=== PATIENT | male | born 1960 | race Hispanic/Latino ===

== ENCOUNTER 2025-03-22 00:16 | Emergency (ER) | payer OTHER, SELFPAY ==
[2025-03-22 00:26] VITALS: BP 203/134
[2025-03-22 01:00] VITALS: BP 150/86
--- NOTE | 2025-03-22 01:01 | ED.GENMED ---
History of Present Illness
General
Chief Complaint: Abdominal Pain
Source: patient
Exam Limitations: none
Time Seen by Provider: 03/22/25 00:40
History of Present Illness
History of Present Illness:
Patient to ED with complaint of urinary retention. States he drank some beer this afternoon and has had difficulty since. Approx 1 yea ago he had a similar event. He was seen by his PCP and placed on flomax. He was told that his prostate was
enlarged. He has not had any futher issues until today. Has not seen PCP since that visit 1 year ago. Brought self to ED for eval,
Past History
Past History
ED Past Medical History: None
Review of Systems
Review of Systems
Allergies reviewed?: Yes
All Other Systems: ROS reviewed and negative except as documented in HPI and ROS
Constitutional: Reports no symptoms
EENT: Reports no symptoms
Respiratory: Reports no symptoms
Cardiac: Reports no symptoms
ABD/GI: Reports no symptoms
: Reports difficulty voiding
Musculoskeletal: Reports no symptoms
Skin: Reports no symptoms
Neurological: Reports no symptoms
Psychiatric: Reports no symptoms
Phy Exam
General Physical Exam
General Presentation: moderate distress
General age: appears stated age
General Skin: warm
General Habitus: normal
General Mental: alert
Cardiovascular Exam
Cardiovascular Exam: regular rate/rhythm
Gastrointestinal Exam
Gastrointestinal Exam: non tender and soft
Genitourinary Exam Male
Exam Male: circumcised, no discharge, normal external genitalia, normal testicular exam, no evidence of trauma and other (Urinary retention. Silva placed by RN bedside. Drained 700cc clear urine. UA sent)
Musculoskeletal Exam
Musculoskeletal Exam: full ROM and neuro vasc intact
Skin Exam
Skin Exam: normal color, warm/dry and no rash
Psychiatric Exam
Psychiatric Exam: normal mood/affect
Course
Orders/Labs/Results
Orders:
Orders
10/05/25 00:56
Urinalysis Reflex To Culture Urgent
Date Specimen was Collected: 03/22/25
Time Specimen was Collected: 00:54
Urine Microscopic Reflex Cult Urgent
03/22/25 00:58
Silva [Silva Placement- Treatment] ONCE
Reason for insertion: Acute Retention
Abnormal Lab Results
03/22/25
00:56
Ur Occult Blood Reflex 4+ A
(Negative)
Urine RBC 3-6 A /HPF
(0-2)
Vital Signs
Initial and Last Documented VS:
Initial Vital Signs
Temp Pulse Resp BP Pulse Ox
98.5 F 120 20 203/134 99
03/22/25 00:26 03/22/25 00:26 03/22/25 00:26 03/22/25 00:26 03/22/25 00:26
Last Documented Vital Signs
Temp Pulse Resp BP Pulse Ox
98.5 F 91 18 150/86 99
03/22/25 00:26 03/22/25 01:00 03/22/25 01:00 03/22/25 01:00 03/22/25 01:05
*Pulse Oximetry
SaO2: 99
Oxygen Mode of Delivery: Room air
Patient hypoxic: no
*Critical Care Note
Total Time (30-74mins, 75-104mins- exclusive of procedures): Not Applicable
Update Note
Update Note:
Patient to ED with report of urinary retention after drinking alcohol earlier today. Bladder scan confirms 700+cc present in bladder. Silva catheter placed by RN and drained an immediate 700cc. No evidence of UTI on UA. Will discharge home with
catheter in place and he will follow up with his urologist this week. He has had urinary retention in the past, diagnonsis of enlarge prostate. Given instructions on s/s to return to ED and he is agreeable to plan.
ED Attending Note
-
Portions of this chart may have been created with voice recognition software.� Occasional wrong word or��sound alike� substitutions may have occurred due to the inherent limitations of voice recognition software.
Discharge Plan
Departure
Patient Disposition: Home (Routine Discharge)
Date of Disposition: 03/22/25
Time of Disposition: 01:29
Patient with high blood pressure during this ER visit?: No
Condition: Good
Covid-19: Not Applicable
Discharge Problem:
Acute urinary retention
Instructions: How to Care for Your Silva Catheter, Male, Urinary retention (DC)
Referrals:
Jorge Curiel MD [Active, Urology] - Call in 1-3 days for appt
Interventions
Interventions:
*Risk Screen - Suicide Last Done: 03/22/25 00:26
*General Assessment Last Done: 03/22/25 00:26
*Neglect/Abuse Screening Last Done: 03/22/25 00:26
*Nursing Disposition Last Done: 03/22/25 02:26
RX-Nfocxs-Cmtretffnc Assessment Last Done: 03/22/25 00:55
Discharge Date and Time
Discharge Date/Time: 03/22/25 02:27
Print Language: [id number]
[2025-03-22 01:05] LABS: Urine Character Clear (Clear)
[2025-03-22 01:22] LABS: Urine Squamous Cell None seen /LPF (Few); Urine White Cell 0-2 /HPF (0-5)
== END 2025-03-22 02:27 | disposition home or self-care (01) ==
LOC: EMR 00:16
PROVIDERS: Nurse Practitioner; EMERGENCY PHYSICIAN Student in an Organized Health Care Education/Training Program
DX: R33.8 Other retention of urine (principal); N40.1 Benign prostatic hyperplasia with lower urinary tract symptoms
CPT/HCPCS: 99282; 81003; 81015